=== PATIENT | male | born 1970 | race Caucasian/White ===

== ENCOUNTER 2016-10-02 12:26 | Emergency (ER) | payer MEDICAID, OTHER ==
[2016-10-02 12:40] VITALS: BP 132/81; PULSE 90; RESP 16; TEMP 98.1; O2SAT 94
--- NOTE | 2016-10-02 13:15 | EDPHY ---
H & P Time Seen by Provider: 10/02/16 12:53 HPI/ROS: CHIEF COMPLAINT: Right shoulder pain History by patient HISTORY OF PRESENT ILLNESS: 46-year-old man presents with ongoing right shoulder pain due to rotator cuff injury that occurred 2 months ago at work. He was initially going to get repair surgery through [employer] but somehow this was denied. He has continued to have ongoing pain while he is starting on his insurance situation. He is here today requesting pain medicines. He says he has tried ibuprofen with minimal relief and occasionally warm showers or applied heat help. He has been on oxycodone for the pain previously with relief. Pain is worse when he tries to use his right arm. REVIEW OF SYSTEMS: As in HPI, and all other systems reviewed and are negative Smoking Status: Never smoked Physical Exam: General Appearance: Alert and no distress. Eyes: Pupils equal and round no injection. Musculoskeletal: Neck is supple and nontender. Extremities: Right shoulder with anterior tenderness, full range of motion with some pain, distal radial, ulnar and median nerve intact motor and sensory, radial pulse 2 +and equal to the left. Skin: No rashes or lesions. Constitutional: Initial Vital Signs Temperature (C) 36.7 C 10/02/16 12:33 Heart Rate 90 10/02/16 12:33 Respiratory Rate 16 10/02/16 12:33 Blood Pressure 132/81 H 10/02/16 12:33 O2 Sat (%) 94 10/02/16 12:33 O2 Delivery Mode Room Air Allergies/Adverse Reactions: No Known Allergies Allergy (Verified 10/02/16 12:32) Home Medications: Medication Instructions Recorded Lidocaine 5% [Lidoderm 5% Patch 1 ea TD DAILY #30 patch 10/02/16 (*)] Meloxicam 7.5 mg PO DAILY #10 tablet 10/02/16 MDM/Departure - [facility] ED Course/Re-evaluation: Patient presents requesting pain medicines for ongoing rotator cuff injury for several months. I looked the patient up in the [facility] and his he has received several prescriptions for oxycodone Tylenol in the past. Given that this is now becoming a chronic soft tissue injury we discussed other risks of opiate pain medicines probably do not outweigh the benefits for chronic pain and I am recommending on going NSAIDs as well as topical lidocaine patches for which he has been given a prescription. Patient is also given referral for physical therapy and he will continue to follow up with Orthopedics. - Depart Disposition: Home, Routine, Self-Care Clinical Impression: Shoulder pain Qualifiers: Laterality: right Chronicity: chronic Qualified Code(s): M25.511 - Pain in right shoulder; G89.29 - Other chronic pain Condition: Good Instructions: Shoulder Pain (ED) Additional Instructions: You were seen by Dr. Laly Miller today. Return for any worsening or new concerns. Try a topical lidocaine patches as needed for severe pain and take meloxicam as needed daily. Follow up with physical therapy and Orthopedics. Prescriptions: Lidocaine 5% [Lidoderm 5% Patch (*)] 1 ea TD DAILY #30 patch Meloxicam 7.5 mg PO DAILY #10 tablet Referrals: NONE *PRIMARY CARE P,. [Primary Care Provider] - As per Instructions
== END 2016-10-02 13:20 | disposition home or self-care (01) ==
LOC: CED 12:26
DX: M25.511 Pain in right shoulder (principal); G89.29 Other chronic pain